=== PATIENT | female | born 1995 | race American Indian/Alaskan Native ===

== ENCOUNTER 2017-11-07 22:50 | Emergency (ER) | payer SELFPAY ==
[2017-11-07] MEDS ORDERED: KEPPRA 1,000 MG/NS 0.75% 100ML 1,000 MG/100 ML BAG IV ONE (23:14)
[2017-11-07] MEDS ORDERED: LaMICtal PO ONE ×2 (23:21→23:24)
--- NOTE | 2017-11-07 23:30 | Emergency Department Report ---
ED Seizure HPI - General Chief Complaint: Seizure Stated Complaint: SEIZURE Time Seen by Provider: 11/07/17 23:13 Source: patient, family Mode of arrival: Ambulatory Limitations: No Limitations - History of Present Illness Initial Comments: 22-year-old female with a past medical history of seizures presents to the hospital status post seizure. Patient was noncompliant with her Lamictal and ran out after taking her last pill yesterday morning. She takes Lamictal 250 mg twice a day. Last sz 2 months ago. She has a neurologist and her home city of [facility]. She complains of a temporal headache that is mild which is typical of her post seizure headache. No other complaints. - Related Data Previous Rx's Medication Instructions Recorded Last Taken Type lamoTRIgine [LaMICtal] 100 mg PO BID #60 tab 11/07/17 Unknown Rx lamoTRIgine [LaMICtal] 150 mg PO BID #60 tab 11/07/17 Unknown Rx Allergies Allergy/AdvReac Type Severity Reaction Status Date / Time No Known Allergies Allergy Verified 11/07/17 23:26 ED Review of Systems ROS: Stated complaint: SEIZURE Other details as noted in HPI Comment: All other systems reviewed and negative ED Past Medical Hx - Past Medical History Previous Medical History?: Yes Hx Seizures: Yes - Surgical History Past Surgical History?: No - Social History Smoking Status: Never Smoker Substance Use Type: None - Medications Home Medications: Home Medications Medication Instructions Recorded Confirmed Last Taken Type lamoTRIgine [LaMICtal] 100 mg PO BID #60 tab 11/07/17 Unknown Rx lamoTRIgine [LaMICtal] 150 mg PO BID #60 tab 11/07/17 Unknown Rx ED Physical Exam - General Limitations: No Limitations - Other Other exam information: General: No limitations, patient is alert in no acute distress Head exam: Atraumatic, normocephalic Eyes exam: Normal appearance, pupils equal reactive to light, extraocular movements intact ENT: Moist mucous membrane, normal oropharynx Neck exam: Normal inspection, full range of motion, no meningismus nontender Respiratory exam: Clear to auscultation bilateral, no wheezes, rales, crackles Cardiovascular: Normal rate and rhythm, normal heart sounds Abdomen: Soft, nondistended, and nontender, with normal bowel sounds, no rebound, or guarding Extremity: Full range of motion normal inspection no deformity Back: Normal Inspection, full range of motion, no tenderness Neurologic: Alert, oriented x3, cranial nerves intact, no motor or sensory deficit Psychiatric: normal affect, normal mood Skin: Warm, dry, intact ED Course Vital Signs 11/07/17 11/07/17 11/07/17 22:52 23:04 23:55 Temperature 99.1 F Pulse Rate 116 H 88 Respiratory 22 28 H Rate Blood Pressure 147/70 Blood Pressure [Left] O2 Sat by Pulse 99 98 99 Oximetry 11/08/17 11/08/17 00:05 00:12 Temperature Pulse Rate 90 Respiratory 20 14 Rate Blood Pressure Blood Pressure 132/64 [Left] O2 Sat by Pulse 99 99 Oximetry - Reevaluation(s) Reevaluation #1: 11/07/17 23:54 pt received po lamictal and wants to leave so she has time to catch a shuttle bus back to [place]. She does not want any further monitoring ED Medical Decision Making - Medical Decision Making Breakthrough seizure activity likely secondary to medication noncompliance. Patient given her lamictal 250 mg in the ED. She declined blood work. She did not want to stay in the ED for observation because she has somewhere to be this evening. She will be given a one-month supply of her stated Lamictal dose. HR improved to less then 100 prior to d/c - Differential Diagnosis seziure, med noncompliance Critical Care Time: No Critical care attestation.: If time is entered above; I have spent that time in minutes in the direct care of this critically ill patient, excluding procedure time. ED Disposition Clinical Impression: Seizure, Noncompliance with medication regimen Disposition: TO HOME OR SELFCARE Is pt being admited?: No Does the pt Need Aspirin: No Condition: Stable Instructions: Recurrent Seizures Adult (ED) Additional Instructions: You have been prescribed a refill of your stated Lamictal dose. Take the medication as prescribed. Follow-up with your neurologist. Prescriptions: lamoTRIgine [LaMICtal] 100 mg PO BID #60 tab lamoTRIgine [LaMICtal] 150 mg PO BID #60 tab Referrals: your, neurologist [Other] - 3-5 Days Time of Disposition: 23:53
[2017-11-08 00:15] VITALS: BP 132/64
== END 2017-11-08 00:17 | disposition home or self-care (01) ==
LOC: ED 22:50
DX: R56.9 Unspecified convulsions (principal); R51 Headache; Z91.14 Patient's other noncompliance with medication regimen
CPT/HCPCS: 99283